=== PATIENT | female | born 1930 | race Caucasian/White ===

== ENCOUNTER 2017-03-20 15:17 | Observation (INO) | payer OTHER ==
[~2017-03-20] VITALS: Ht 152.4 cm; Wt 54.6 kg
[~2017-03-20 15:17] MED LIST: CLONIDINE HCL0.1 MG PO; FLA500 PO; GOOD SENSE ASPI81 M3 PO; LAC PO; LEVAQUIN750 MG PO; LORAZEPAM0.5 MG PO; MAGNESIUM OXID400 MG PO; MEVACOR40 MG PO; MYL80 CH; NATURAL IRON65 MG PO; PRINIVIL20 MG PO; ZANTAC 300300 MG PO
[2017-03-20 19:00] LABS: BASOPHIL % 0.3 % (0-2); PLATELET COUNT 256 x10^3mcL (130-400)
[2017-03-20 19:01] LABS: RED CELL DISTRIBUTION WIDTH 14.9 % (11.5-14.5)
[2017-03-20 19:20] LABS: CALCIUM 10.2 mg/dL (8.5-10.1); CARBON DIOXIDE 26.3 mmol/L (21-32); CHLORIDE SERUM 92 mmol/L (98-107); CREATININE SERUM 0.5 mg/dL (0.6-1.0); GLUCOSE SERUM 131 mg/dL (74-106); POTASSIUM SERUM 3.7 mmol/L (3.5-5.1); SODIUM SERUM 130 mmol/L (136-145)
[2017-03-20] MEDS ORDERED: CATAPRES0.1 MG PO (21:57)
[2017-03-20] MEDS ORDERED: CATAPRES0.1 MG (21:58)
[2017-03-20] MEDS ORDERED: LISINOPRIL2.5 MG (21:58)
[2017-03-20 22:17] LABS: CHOLESTEROL/HDL RATIO 1.5; MAGNESIUM 1.9 mg/dL (1.8-2.4); PHOSPHOROUS 2.6 mg/dL (2.5-4.9)
[2017-03-20 22:24] LABS: T3 TOTAL 0.95 ng/mL
[2017-03-20 22:27] LABS: FREE T4 0.98 ng/dL (0.76-1.46); FREE THYROXINE INDEX 2.9 ug/dL (1.4-4.5); T4(THYROXINE) 8.9 ug/dL (4.7-13.3)
[2017-03-20 22:37] VITALS: BP 184/76
[2017-03-21] VITALS (7 sets, daily range): BP systolic 121–156; BP diastolic 52–64
[2017-03-21 04:18] LABS: UA SPECIFIC GRAVITY <=1.005 (1.005-1.035); microscopic required? YES; urine erythrocyte 1+ (NEGATIVE)
[2017-03-21 06:48] LABS: CALCIUM 9.5 mg/dL (8.5-10.1); CARBON DIOXIDE 29.6 mmol/L (21-32); CHLORIDE SERUM 99 mmol/L (98-107); CREATININE SERUM 0.6 mg/dL (0.6-1.0); GLUCOSE SERUM 121 mg/dL (74-106); POTASSIUM SERUM 4.2 mmol/L (3.5-5.1); SODIUM SERUM 132 mmol/L (136-145)
[2017-03-21] MEDS ORDERED: NORCO1 TA1 PO (18:07)
[2017-03-21] MEDS ORDERED: MEV20 PO (18:11)
== END 2017-03-21 11:55 | disposition home or self-care (01) | DRG 313 ==
LOC: ED 15:17 → DU 20:20 → ED 21:01 → DU 21:01
PROVIDERS: Emergency Medicine; ADMIT Family Medicine
DX: R07.9 Chest pain, unspecified (principal); I50.43 Acute on chronic combined systolic (congestive) and diastolic (congestive) heart failure; E87.1 Hypo-osmolality and hyponatremia; J98.11 Atelectasis; M94.0 Chondrocostal junction syndrome [Tietze]; S29.011A Strain of muscle and tendon of front wall of thorax, initial encounter; S29.012A Strain of muscle and tendon of back wall of thorax, initial encounter; K21.9 Gastro-esophageal reflux disease without esophagitis; I16.0 Hypertensive urgency; I44.7 Left bundle-branch block, unspecified; E83.52 Hypercalcemia; W01.0XXA Fall on same level from slipping, tripping and stumbling without subsequent striking against object, initial encounter; Y92.481 Parking lot as the place of occurrence of the external cause
CPT/HCPCS: 83880; 84439; 97530-GP; G0378; J1170; J1885; J2270; J2405; J3010; J3360; J3490; J7030; Q0092; Q9967